=== PATIENT | female | born 1985 | race Hispanic/Latino ===

== ENCOUNTER 2016-08-16 18:59 | Emergency (ER) | payer SELFPAY ==
[2016-08-16 19:16] VITALS: BP 111/80
[2016-08-16] MEDS ORDERED: MORPHINE IM ONE (21:10)
[2016-08-16] MEDS ORDERED: BOOSTRIX IM ONE (21:11)
[2016-08-16] MEDS ORDERED: XYLOCAINE 2%/EPI 1:100,000 INFILTRATI ONE (21:11)
--- NOTE | 2016-08-16 21:12 | Emergency Department Report ---
ED Lower Extremity HPI - General Chief Complaint: Extremity Injury, Lower Stated Complaint: PIN STUCK IN LEFT FOOT Source: patient Mode of arrival: Ambulatory Limitations: No Limitations - History of Present Illness Initial Comments: 31-year-old female states that she stepped on a sewing needle. Patient states over needle broke patient is presenting a Ziploc bag half of sewing needle. Patient states it occurred while walking in her mother's home. Denies any other injuries, brought to hospital by her family. Patient does not know her last tetanus shot MD Complaint: foot injury -: This afternoon Injury: Foot: Left (pain left foot near the heel) Type of Injury: puncture wound Place: home Severity: severe Severity scale (0 -10): 8 Worsens With: weight bearing Context: stepped on nail (stepped on sewing needle) - Related Data Previous Rx's Medication Instructions Recorded Last Taken Type Acetaminophen/Codeine [Tylenol 1 tab PO Q6H PRN #8 tab 08/16/16 Unknown Rx /Codeine # 3 tab] Clindamycin [Clindamycin CAP] 300 mg PO Q6H #28 capsule 08/16/16 Unknown Rx Ibuprofen [Motrin] 600 mg PO Q8H PRN #25 tablet 08/16/16 Unknown Rx Neomycn/Baci Zn/Pmyx Bs/Pramox 28 gm TP BID #1 tube 08/16/16 Unknown Rx [Triple Antibioti-Pain Rlf Oint] Allergies Allergy/AdvReac Type Severity Reaction Status Date / Time Penicillins Allergy Hives Verified 08/16/16 19:10 ED Review of Systems ROS: Stated complaint: PIN STUCK IN LEFT FOOT Other details as noted in HPI Constitutional: denies: chills, fever Eyes: denies: eye pain, eye discharge, vision change ENT: denies: ear pain, throat pain Respiratory: denies: cough, shortness of breath, wheezing Cardiovascular: denies: chest pain, palpitations Endocrine: no symptoms reported Gastrointestinal: denies: abdominal pain, nausea, diarrhea Genitourinary: denies: urgency, dysuria, discharge Musculoskeletal: denies: back pain, joint swelling, arthralgia Skin: denies: rash, lesions Neurological: denies: headache, weakness, paresthesias Psychiatric: denies: anxiety, depression Hematological/Lymphatic: denies: easy bleeding, easy bruising ED Past Medical Hx - Past Medical History Previous Medical History?: Yes Hx Seizures: Yes - Surgical History Past Surgical History?: Yes Hx Cholecystectomy: Yes Hx Appendectomy: Yes Additional Surgical History: PARTIAL HYSTERECTOMY - Social History Smoking Status: Current Every Day Smoker Substance Use Type: None - Medications Home Medications: Home Medications Medication Instructions Recorded Confirmed Last Taken Type Acetaminophen/Codeine [Tylenol 1 tab PO Q6H PRN #8 tab 08/16/16 Unknown Rx /Codeine # 3 tab] Clindamycin [Clindamycin CAP] 300 mg PO Q6H #28 capsule 08/16/16 Unknown Rx Ibuprofen [Motrin] 600 mg PO Q8H PRN #25 tablet 08/16/16 Unknown Rx Neomycn/Baci Zn/Pmyx Bs/Pramox 28 gm TP BID #1 tube 08/16/16 Unknown Rx [Triple Antibioti-Pain Rlf Oint] ED Physical Exam - General Limitations: No Limitations General appearance: alert, in no apparent distress - Head Head exam: Present: atraumatic, normocephalic - Eye Eye exam: Present: normal appearance, PERRL, EOMI - ENT ENT exam: Present: mucous membranes moist - Neck Neck exam: Present: normal inspection - Respiratory Respiratory exam: Present: normal lung sounds bilaterally. Absent: respiratory distress - Cardiovascular Cardiovascular Exam: Present: regular rate, normal rhythm. Absent: systolic murmur, diastolic murmur, rubs, gallop - GI/Abdominal GI/Abdominal exam: Present: soft, normal bowel sounds - Extremities Exam Extremities exam: Present: normal inspection - Expanded Lower Extremity Exam Left Foot/Toe exam: Present: puncture wound (visible puncture wound and mid heel region near plantar fascia) Neuro vascular tendon exam: Present: no vascular compromise (distal dorsalis pedis and posterior tibial pulses intact) - Back Exam Back exam: Present: normal inspection - Neurological Exam Neurological exam: Present: alert, oriented X3 - Psychiatric Psychiatric exam: Present: normal affect, normal mood - Skin Skin exam: Present: warm, dry, intact, normal color. Absent: rash ED Course Vital Signs 08/16/16 19:10 Temperature 98.6 F Pulse Rate 95 H Respiratory 20 Rate Blood Pressure 111/80 O2 Sat by Pulse 100 Oximetry ED Lower Extremity MDM - Medical Decision Making A/P: Puncture wound with foreign body left foot 1-successful extraction of a sewing needle tip, matched perfectly with other half that patient brought in a Ziploc bag 2-tetanus updated today 3-Motrin and Tylenol No. 3 when necessary for pain 4- course of antibiotics to mitigate any possible infection. I advised patient on local wound care and advised her to return to the ED for any fevers chills pus drainage or significant erythema foot. Patient stated she understood my instructions. Critical care attestation.: If time is entered above; I have spent that time in minutes in the direct care of this critically ill patient, excluding procedure time. ED Disposition Clinical Impression: Foreign body in left foot Qualifiers: Encounter type: initial encounter Qualified Code(s): S90.852A - Superficial foreign body, left foot, initial encounter Disposition: TO HOME OR SELFCARE Is pt being admited?: No Does the pt Need Aspirin: No Condition: Stable Instructions: Soft Tissue Foreign Body (ED), Puncture Wound (ED) Additional Instructions: Patient advised to return to the ED and approximately 9-10 days for suture removal Prescriptions: Acetaminophen/Codeine [Tylenol /Codeine # 3 tab] 1 tab PO Q6H PRN #8 tab PRN Reason: Pain Clindamycin [Clindamycin CAP] 300 mg PO Q6H #28 capsule Ibuprofen [Motrin] 600 mg PO Q8H PRN #25 tablet PRN Reason: Pain Neomycn/Baci Zn/Pmyx Bs/Pramox [Triple Antibioti-Pain Rlf Oint] 28 gm TP BID #1 tube Referrals: PRIMARY CARE, [Primary Care Provider] - 3-5 Days TONY GUTIÉRREZ DPM [Staff Physician] - 3-5 Days Forms: Accompanied Note, Work/School Release Form(ED) Time of Disposition: 22:59
[2016-08-16] MEDS ORDERED: TRIPLE ANTIBIOTIC TP ONE (22:35)
[2016-08-16] MEDS ORDERED: MOTRIN PO ONE (23:01)
[2016-08-16] MEDS ORDERED: CLEOCIN PO ONE (23:01)
--- NOTE | 2016-08-17 08:09 | XRay Report ---
LEFT FOOT 2 VIEWS: 08/16/16 CLINICAL: Pain. FINDINGS: A 2 cm + metal and core needle is identified in the midline soft tissues of the heel. The tip is not extend to the bone. The bones and joints are normal. IMPRESSION: Metallic foreign body in the soft tissues of the heel.
--- NOTE | 2016-08-17 08:11 | XRay Report ---
X-RAY LEFT FOOT ONE VIEW: 08/16/16 22:15:00 CLINICAL: Check for foreign body. FINDINGS: Since the previous exam at 19:45, the metallic foreign body in the soft tissues of the heel has been removed. The bones, joints and soft tissues are normal. IMPRESSION: Normal after removal of foreign body.
== END 2016-08-16 23:14 | disposition home or self-care (01) ==
LOC: ED 18:59
DX: S90.852A Superficial foreign body, left foot, initial encounter (principal); F17.210 Nicotine dependence, cigarettes, uncomplicated; Z88.0 Allergy status to penicillin
CPT/HCPCS: 73620; 90471; 90715; 96372; 99283; J2270; A6250